=== PATIENT | male | born 1955 | race American Indian/Alaskan Native ===

== ENCOUNTER 2016-07-26 07:24 | Day surgery (SDC) | payer MEDICAID ==
[2016-07-26 08:45] VITALS: BMI 34.4
[2016-07-26] MEDS ORDERED: Propofol 10 mg/ml Inj (20 ML) ONE ×3 (10:31→11:11)
--- NOTE | 2016-07-26 10:45 | CP.SDSHP ---
Same Day Surgery H & P - History Proposed Procedure: colonoscopy Pre-Op Diagnosis: screen - Previous Medical/Surgical History Comments: chol - Allergies Allergies: Allergies No Known Allergies Allergy (Verified 07/26/16 08:44) - Physical Exam Vital Signs: Vital Signs 07/26/16 07/26/16 09:13 10:40 Temperature 97.3 F L 97.3 F L Pulse Rate 50 L 50 L Respiratory 19 19 Rate Blood Pressure 126/68 126/68 O2 Sat by Pulse 99 99 Oximetry Mental Status: Alert & Oriented x3 Neuro: WNL Heart: WNL Lungs: WNL GI: WNL - Impression Impression: screening Pt. Evaluated Today:Candidate for Anesthesia & Procedure: Yes - Date & Time Date: 07/26/16 Time: 10:30 Short Stay Discharge - Short Stay Discharge Admitting Diagnosis/Reason for Visit: SCREENING FOR MAL TARYN COLON Disposition: HOME/ ROUTINE
[2016-07-26] MEDS ORDERED: Lactated Ringer's 1,000 ML IV SCH (11:00)
[2016-07-26 11:35] VITALS: O2SAT 96
[2016-07-26 12:21] VITALS: BP 108/60; PULSE 45; RESP 14; TEMP 97
== END 2016-07-26 12:20 | disposition home or self-care (01) ==
LOC: C.ENDO 07:24
PROVIDERS: ATTEND Internal Medicine Gastroenterology
DX: Z12.11 Encounter for screening for malignant neoplasm of colon (principal); D12.5 Benign neoplasm of sigmoid colon; K57.30 Diverticulosis of large intestine without perforation or abscess without bleeding; K64.1 Second degree hemorrhoids
CPT/HCPCS: 45380; 88305; J2704; J7120